=== PATIENT | female | born 1990 | race Caucasian/White ===

== ENCOUNTER 2017-05-20 17:33 | Emergency (ER) | payer OTHER, SELFPAY ==
[2017-05-20 17:59] LABS: Bilirubin Negative (Negative); Blood, Urine Negative (Negative); Clarity Clear (Clear); Glucose, Urine (Dipstick) Negative (Negative); Leukocyte Negative (Negative); Nitrite Negative (Negative); Protein, Urine (Dipstick) Negative (Neg-Trace); Urobilinogen 0.2 mg/dL (0.2-1.0); pH, Urine 8.5 (5.0-9.0)
[2017-05-20] MEDS ORDERED: HYDROcodone/Acetaminophen 10/325 mg Tablet ONE (18:01)
[2017-05-20] MEDS ORDERED: Ciprofloxacin 500 MG TAB ONE (18:02)
[2017-05-20] MEDS ORDERED: predniSONE 20 MG TAB ONE (18:02)
[2017-05-20 18:18] LABS: Pregu Control Background? CLEAR/WHITE (CLR/WHITE); Pregu Control Bar Appear? YES (CONTROL BAR)
[2017-05-20 18:20] LABS: Pregnancy Test - Urine (BHCG) Negative (Negative)
== END 2017-05-20 18:20 | disposition home or self-care (01) ==
LOC: NAV ERS 17:33
DX: J03.90 Acute tonsillitis, unspecified (principal)
CPT/HCPCS: 81003; 81025; 99284; J7506